=== PATIENT | female | born 1980 | race Hispanic/Latino ===

== ENCOUNTER 2024-08-02 15:29 | Emergency (ER) | payer SELFPAY ==
[2024-08-02] MEDS ORDERED: Acetaminophen 500 MG TAB ONE (15:56)
== END 2024-08-02 16:08 | disposition home or self-care (01) ==
LOC: NAV ERS 15:29
DX: M25.552 Pain in left hip (principal); M54.6 Pain in thoracic spine; R51.9 Headache, unspecified; I10 Essential (primary) hypertension; E11.9 Type 2 diabetes mellitus without complications; E78.00 Pure hypercholesterolemia, unspecified; V43.52XA Car driver injured in collision with other type car in traffic accident, initial encounter; Y93.89 Activity, other specified; Z79.84 Long term (current) use of oral hypoglycemic drugs; Z79.899 Other long term (current) drug therapy
CPT/HCPCS: 36416; 99283